=== PATIENT | female | born 1940 | race Caucasian/White ===

== ENCOUNTER 2017-04-24 10:38 | Inpatient (IN) | payer SELFPAY ==
[~2017-04-24] VITALS: Ht 160 cm; Wt 61.2 kg
[~2017-04-24 10:38] MED LIST: LOPRESSOR100 M1 PO; MAXZIDE 75/501 EACH PO; POTASSIUM CHLO20 ME2 PO; TYLENOL EXTRA500 MG PO
[2017-04-24 11:13] VITALS: BP 190/86
[2017-04-24 11:23] VITALS: BP 190/86
[2017-04-24 11:25] LABS: HEMATOCRIT 41.8 % (36.0-46.0); MCH 30.1 PG (29.0-34.0); MCV 88.7 FL (83-99); MEAN PLAT.VOLUME 9.2 uM^3 (9.5-12.4); PLATELET COUNT 307 K/uL (156-360); RBC DIS.WIDTH-CV 12.7 % (11.8-14.6); RBC DIS.WIDTH-SD 41.5 % (39-53); RED BLOOD COUNT 4.71 M/uL (3.80-5.20); WHITE BLOOD COUNT 9.7 K/uL (4.1-10.2)
[2017-04-24 11:46] LABS: ANION GAP 10 MEQ/L (2-14); CHLORIDE 93 MEQ/L (99-109); SAMPLE HEMOLYSIS CHECK 0; SAMPLE ICTERIC CHECK 0; SAMPLE LIPEMIA CHECK 0; SODIUM 133 MEQ/L (136-147)
[2017-04-24 11:51] LABS: GFR ESTIMATE (CALCULATED) > 59 mL/min/; GLUCOSE 98 mg/dL (70-99); UREA NITROGEN (BUN) 10 mg/dL (9-23)
[2017-04-24 19:29] VITALS: BP 122/74
[2017-04-24 20:11] VITALS: BP 122/74
[2017-04-24 23:46] VITALS: BP 131/60
[2017-04-25 03:29] VITALS: BP 132/61
[2017-04-25 07:14] VITALS: BP 153/67
[2017-04-25] MEDS ORDERED: BACLOFEN10 MG PO (07:40)
[2017-04-25] MEDS ORDERED: NORCO 5/3251 TABLET PO (07:40)
[2017-04-25 08:00] VITALS: BP 127/61
[2017-04-25 15:10] VITALS: BP 131/58
== END 2017-04-25 17:34 | disposition home or self-care (01) | DRG 460 ==
LOC: 2SOUTH 10:38 → EDSTATUS 12:00 → SDC 12:00 → 2SOUTH 12:02 → 3EAST 19:18
PROVIDERS: Neurological Surgery
DX: M43.16 Spondylolisthesis, lumbar region (principal); M48.06 Spinal stenosis, lumbar region; I10 Essential (primary) hypertension; E78.00 Pure hypercholesterolemia, unspecified; Z85.3 Personal history of malignant neoplasm of breast; Z85.828 Personal history of other malignant neoplasm of skin
CPT/HCPCS: 72100; 76000; 80048; 85027; 86900; 86901; J0330; J0690; J1100; J1580; J1885; J2405; J3010; J3370; J3480